=== PATIENT | male | born 1995 | race Caucasian/White ===

== ENCOUNTER 2022-09-06 11:28 | Emergency (ER) | payer OTHER ==
[~2022-09-06] VITALS: Ht 177.8 cm; Wt 68.2 kg
[2022-09-06 11:32] VITALS: BP 135/69
[2022-09-06] MEDS ORDERED: RISP3TAB63 PO (11:40)
[2022-09-06] MEDS ORDERED: SERT100T PO (11:40)
== END 2022-09-06 11:51 | disposition home or self-care (01) ==
LOC: ER 11:28
DX: F32.A Depression, unspecified (principal); Z76.0 Encounter for issue of repeat prescription
CPT/HCPCS: 99281